=== PATIENT | female | born 1990 | race Caucasian/White ===

== ENCOUNTER → 2023-05-25 10:16 | Outpatient (CLI) | payer OTHER, SELFPAY ==
--- NOTE | 2023-05-25 | DI.US.S_ITS ---
PROCEDURE: US OB >= 14 WEEKS FETUS INDICATIONS: ANATOMY SCAN OUTSIDE/PRIOR DATING DATA: Last menstrual period (LMP): 01/02/2023. LMP-based estimated date of delivery (ALFONSO): 10/09/2023. Working ALFONSO is 10/02/2023 TECHNIQUE: Real-time scanning was performed of the fetus, with image documentation and biometric measurements. COMPARISON: None. FINDINGS: General: A single living intrauterine gestation is present. Presentation: Variable Placenta: Placental position is posterior , without previa. No previa Amniotic fluid index: 17.6 cm, normal range is 5-24 cm. Single deepest vertical pocket is 4.8 cm. heart rate: 141 beats per minute. Maternal cervical canal: 6.2 cm long. Normal lower limit is 2.5 cm. biometrics: Biparietal diameter: 5.2 cm, 21 weeks and 6 days. Head circumference: 19.4 cm, 21 weeks and 4 days Abdominal circumference: 15.6 cm, 20 weeks and 5 days Femur length: 3.6 cm, 21 weeks and 4 days Clinically estimated gestational age: 20 weeks and 3 days Composite gestational age from present scan: 21 weeks and 3 days Estimated weight and percentile: 405 g, 84th percentile Anatomic survey: Neuro: Ventricles are non-dilated at less than 10 mm. Cisterna magna is normal at 3-11 mm. Cerebellum is normal in size and morphology. Nuchal skin fold: Normal at less than 6 mm between 14-21 weeks gestational age. Face: Nose and lips, facial profile are normal. Spine: No evidence for spina bifida. Heart: Four-chamber view is present. RVOT is not well seen. LVOT within normal limits. Diaphragm: Diaphragm is intact. Stomach: Left-sided stomach is present. Kidneys: No hydronephrosis. Normal is less than 5 mm in 2nd trimester, less than 7 mm in 3rd trimester. Cord: 3-vessel cord has orthotopic insertion. Bladder: Normal in size. Extremities: All 4 extremities identified. IMPRESSION: Living intrauterine gestation at 20 weeks and 3 days. Biometry at the upper limit of normal today at the 84th percentile, 405 g. No significant abnormalities on routine anatomic survey. The RVOT however was not well seen due to position. Consider follow-up. Dictated by: Matti Triplett M.D. on 05/25/2023 at 15:16 Approved by: Matti Triplett M.D. on 05/25/2023 at 15:20
== END ==
PROVIDERS: Referring Provider Nurse Practitioner Obstetrics & Gynecology; Visit Provider Nurse Practitioner Obstetrics & Gynecology
DX: Z34.92 Encounter for supervision of normal pregnancy, unspecified, second trimester (principal); Z3A.20 20 weeks gestation of pregnancy
CPT/HCPCS: 76811

== ENCOUNTER → 2023-06-29 10:13 | Outpatient (CLI) | payer OTHER, SELFPAY ==
--- NOTE | 2023-06-29 10:14 | DI.US.S_ITS ---
PROCEDURE: US OB FOLLOW UP INDICATIONS: Size greater than dates OUTSIDE/PRIOR DATING DATA: Last menstrual period (LMP): 12/25/2022. LMP-based estimated date of delivery (ALFONSO): 10/19/2023. First dating scan (date and location): Un no. Estimated date of delivery (ALFONSO) from first dating scan: 10/02/2023. The calculations are made using the ultrasound ALFONSO of 10/02/2023. TECHNIQUE: Real-time scanning was performed of the fetus, with image documentation and biometric measurements. COMPARISON: [facility], US, US OB >= 14 WEEKS FETUS, 05/25/2023, 10:28. FINDINGS: General: A single living intrauterine gestation is present. Presentation: Variable. Placenta: Placental position is posterior , without previa. Amniotic fluid index: 19.4 cm, normal range is 5-24 cm. Single deepest vertical pocket is 5.7 cm. heart rate: 144 beats per minute. Maternal cervical canal: 7.0 cm long. Normal lower limit is 2.5 cm. biometrics: Biparietal diameter: 6.6 cm 26 weeks 3 days Head circumference: 24.2 cm 26 weeks 2 days Abdominal circumference: 21.8 cm 26 weeks 2 days Femur length: 4.9 cm 26 weeks 3 days Estimated gestational age: 25 weeks 3 days Composite gestational age from present scan: 26 weeks 3 days Estimated weight and percentile: 926 g 79th percentile Other: Right ventricular outflow tract is within normal limits. IMPRESSION: Single live intrauterine with gestational age today of 26 weeks 3 days. Right ventricular outflow tract is within normal limits. We strive to produce accurate, complete, and clear reports of imaging services. To assist us in improving patient care, this report was composed using standard report templates and voice recognition software. Therefore, it may contain abnormal punctuation, insertions and/or omissions. Occasional wrong-word or sound-alike substitutions may occur. Though we review the report and make efforts to correct it, we do recommend that the report be read carefully in proper context to recognize any text inaccuracies. Dictated by: Glory Bravo M.D. on 06/29/2023 at 15:43 Approved by: Glory Bravo M.D. on 06/29/2023 at 15:47
== END ==
LOC: US 10:13
PROVIDERS: Referring Provider Advanced Practice Midwife; Visit Provider Advanced Practice Midwife
DX: O26.842 Uterine size-date discrepancy, second trimester (principal); Z3A.26 26 weeks gestation of pregnancy
CPT/HCPCS: 76816

== ENCOUNTER 2023-10-08 08:35 | Outpatient (CLI) | payer OTHER, SELFPAY ==
--- NOTE | 2023-10-08 09:47 | PM.OBTRLD ---
Visit Information Visit Information Date of evaluation: 10/08/23 Primary OB Provider: Brigitte Palomares On-call OB Provider: Brigitte Palomares Reason for Evaluation: Yes rule out labor Comments/Additional reasons for admission: Martha is a 33 yo at 29 weeks 6 day by sure LMP and concordant with 8-week US. Yesterday afternoon, Martha had bloody show and began having regular contractions every 5 minutes. Contractions first increased in intensity and then spaced out after a bath overnight and she chose to stay home and arrive at triage this AM at 0900 for evaluation with her . She is disappointed she is not more dilated. Vital Signs Vital Signs: BP: 116/65 HR: 94 bpm T: 36.2 C [facility] Medical History (Updated 10/08/23 @ 10:11 by Brigitte Palomares CNM, KAYKAY) BMI 30.0-30.9,adult (normal spontaneous vaginal delivery) Twin Surgical History (Updated 10/08/23 @ 10:04 by Brigitte Palomares CNM, KAYKAY) H/O inguinal hernia repair Family History (Updated 10/08/23 @ 10:15 by Brigitte Palomares CNM, KAYKAY) Other Cancer Diabetes mellitus Hypertension Stroke Thyroid disease Social History (Updated 10/08/23 @ 10:13 by Brigitte Palomares CNM, KAYKAY) marital status: number of children: 2 household members: spouse and children lives independently: Yes caregiver/support person: No housing: house education level: college occupational status: employed brodie/quaker: [employer] leisure activities: exercise do you feel safe at home: Yes Smoking Status: Never smoker well-balanced diet: daily or most days caffeine: Yes Type(s) of exercise: aerobic, regular exercise and resistance training frequency: 3-4 times per week Review of Systems Review of Systems ROS: Yes All systems reviewed with the patient and are negative except as otherwise documented Exam Vital Signs (past 8 hours): See above Presentation: vertex Evaluation Evaluation Baseline heart rate: 140 Variability: Moderate (11-25) monitor accelerations: Present Monitor Decelerations: Absent Contraction Frequency (minutes): 0 (Irregular) Category of Tracing: Reactive Cervical dilation (cm): 2 Cervical effacement (%): 75 station: -2 Diagnosis, Plan/Disposition Plan/Disposition Plan: Assessment: 33 yo not in labor Membranes intact GBS negative Plan: Discharge home Encouraged to rest and contact CNM if status changes and contractions become increasingly regular/intense Return to clinic Thursday or next week as desired, or sooner as needed
== END 2023-10-08 09:16 | disposition home or self-care (01) ==
LOC: LABOR 09:09 → OB 10-12 11:18
PROVIDERS: Referring Provider Advanced Practice Midwife; Visit Provider Advanced Practice Midwife
DX: O47.03 False labor before 37 completed weeks of gestation, third trimester (principal); Z3A.29 29 weeks gestation of pregnancy
CPT/HCPCS: 59025; G0378; G0379

== ENCOUNTER 2023-10-09 16:49 | Inpatient (IN) | payer OTHER, SELFPAY ==
--- NOTE | 2023-10-09 17:11 | P.HPOB_ITS ---
OB HPI Date/Time Date of admission: 10/09/23 Date Patient Seen: 10/09/23 Time Patient Seen: 17:12 History of Present Condition Chief complaint: LABOR Narrative: Martha Martinez is a 33 year old female History of Present care: good care, initiated at week #, number of visits and pounds weight gain [facility] Medical History (Updated 10/08/23 @ 10:11 by Brigitte Palomares CNM, KAYKAY) BMI 30.0-30.9,adult (normal spontaneous vaginal delivery) Twin Surgical History (Updated 10/08/23 @ 10:04 by Brigitte Palomares CNM, KAYKAY) H/O inguinal hernia repair Family History (Updated 10/08/23 @ 10:15 by Brigitte Palomares CNM, KAYKAY) Other Cancer Diabetes mellitus Hypertension Stroke Thyroid disease Social History (Updated 10/08/23 @ 10:13 by Brigitte Palomares CNM, KAYKAY) marital status: number of children: 2 household members: spouse and children lives independently: Yes caregiver/support person: No housing: house education level: college occupational status: employed brodie/religious: [employer] leisure activities: exercise do you feel safe at home: Yes Smoking Status: Never smoker well-balanced diet: daily or most days caffeine: Yes Type(s) of exercise: aerobic, regular exercise and resistance training frequency: 3-4 times per week
--- NOTE | 2023-10-09 17:31 | PM.OBHP.1 ---
OB HPI Date/Time Date of admission: 10/09/23 Date Patient Seen: 10/09/23 Time Patient Seen: 05:10 History of Present Condition Chief complaint: LABOR : 2 Para: 1 Estimated Date of Delivery: 10/09/23 Estimated Gestational Age (weeks): 40 Narrative: Martha Martinez is a 33 year old female by LMP concordant with 8 week US. Martha had uncomplicated care with CNVt. Since her triage visit yesterday, Martha continued to have strong but irregular contractions began feeling strong, regular contractions. This afternoon, after completing the [employer] circuit, she contacted CNM at 1600 to notify that contractions had intensified and she wanted to come in. She arrived at the hospital at 1645 with her Bo, tearful and working hard to get through contractions. History of Present care: good care, initiated at week # (8), number of visits (9) and pounds weight gain (65 ) Dating criteria: LMP confirmed by 1st trimester US Ultrasounds: normal 1st trimester US and normal mid trimester US Obstetrical complications: none Medical complications: none Preadmission Labs Blood type: AB (+) positive -: Antibody screen: negative, Cystic fibrosis screen: unknown (Declined testing), GBS status: negative, HBsAG: negative, HIV: negative, HSV 1: negative, HSV 2: negative and RPR/VDLR: negative -: Chlamydia screen: not detected and Gonorrhea screen: not detected -: Rubella: immune and Varicella: not immune HCT: 36.6 HCAB: negative PAP: Abnormal (ASCUS) Sequential screen: Declined MsAFP Cell-free DNA: Declined 1 hr GTT: 69 Prior (ies) History: with h/o NSVB of twins in 2019 Evaluation Evaluation Baseline heart rate: 140 Variability: Moderate (11-25) monitor accelerations: Absent Monitor Decelerations: Late Contraction Frequency (minutes): 4 Uterine Contraction Intensity: Strong/Firm Status: Category ll Dilation (cm): 7 Effacement (%): 80 Dilation: >/=5 cm Effacement: >/=80% station: -1 Position of cervix: anterior Consistency: soft Monique score: 12 [facility] Medical History (Updated 10/08/23 @ 10:11 by Brigitte Palomares, ISRRAEL, SWINE NUTRITIONIST) BMI 30.0-30.9,adult (normal spontaneous vaginal delivery) Twin Surgical History (Updated 10/08/23 @ 10:04 by Brigitte Palomares CNM, ARNP) H/O inguinal hernia repair Family History (Updated 10/08/23 @ 10:15 by Brigitte Palomares CNM, ARNP) Other Cancer Diabetes mellitus Hypertension Stroke Thyroid disease Social History (Updated 10/08/23 @ 10:13 by Brigitte Palomares CNM, ARNP) marital status: number of children: 2 household members: spouse and children lives independently: Yes caregiver/support person: No housing: house education level: college occupational status: employed brodie/taoist: [employer] leisure activities: exercise do you feel safe at home: Yes Smoking Status: Never smoker well-balanced diet: daily or most days caffeine: Yes Type(s) of exercise: aerobic, regular exercise and resistance training frequency: 3-4 times per week Meds Home Medications and Allergies Allergies Allergy/AdvReac Type Severity Reaction Status Date / Time amoxicillin Allergy Intermediate Rash Verified 10/09/23 17:22 Review of Systems Review of Systems ROS: Yes All systems reviewed with the patient and are negative except as otherwise documented OB Exam Vital signs Blood Pressure: 113/63 Pulse Rate: 95 Temperature: 97.5 F HENMT Head: normal to inspection and normocephalic Eyes General: appearance normal, both eyes and all related structures Resp Effort & Inspection: normal respiratory effort and able to speak in complete sentences Extremities Lower extremity: Yes normal to inspection GI Inspection: other (term gravid uterus) Presentation: vertex Objective Labs 10/09/23 17:45 Assessment and Plan Assessment and Plan Assessment and Plan narrative: Assessment: multip in active labor Hypothyroidism in Membranes intact GBS negative Rhogam not indicated Cat 2 FHR Plan: Admit to unit for labor management Plan for intermittent monitoring unless FHR category 2 CE performed per patient request Pt plans unmedicated Anticipate NSVB
[2023-10-09 18:05] LABS: Add Manual Diff / Slide Review NO; Basophils Absolute Auto 100 /uL (0-100); Basophils Percent Auto 0.6 % (0-2); Eosinophils Absolute Auto 100 /uL (0-450); Eosinophils Percent Auto 0.4 % (2-4); Hematocrit 37.4 % (36-46); Hemoglobin 12.6 g/dL (12.0-16.0); Lymphocytes Absolute Auto 1100 /uL (1100-4500); Lymphocytes Percent Auto 8.5 % (25-40); Mean Corpuscular HGB Conc 33.6 % (30-36); Mean Corpuscular Hemoglobin 30.1 PG (26-34); Mean Corpuscular Volume 89.6 fL (80-100); Monocytes Absolute Auto 700 /uL (0-900); Monocytes Percent Auto 5.4 % (3-14); Neutrophils Absolute Auto 10700 /uL (1500-7000); Neutrophils Percent Auto 85.1 % (50-75); Platelet Count 260 X10^3/uL (150-400); Red Blood Cell Count 4.17 X10^6/uL (4.0-5.2); Red Cell Distribution Width 14.4 % (11.6-14.8); White Blood Cell Count 12.6 X10^3/uL (4.5-11.0)
[2023-10-09] MEDS: OXYTOCIN 10 UNIT/ML VIAL IM (18:08)
[2023-10-09 18:36] VITALS: BP 111/60
--- NOTE | 2023-10-09 19:19 | PM.OBPRVD ---
Labor & Delivery Delivery date: 10/09/23 Intrapartal Events: Precipitous Labor < 3 hours Cervical ripening method: none Induction method: none Delivery monitor: external FHT Route of delivery: L&D Laceration Description: Periurethral - 2nd Degree Delivery repair: vicryl Quantitative Blood Loss: 308 Anesthesia Type: None Narrative: Labor progressed quickly once Martha was admitted. HR was Category 2 throughout 2nd stage. While standing, she had 2 or 3 strong and intense contractions, and pushed once to deliver baby's head direct OA. With next contraction, shoulders easily delivered and double nuchal cord noted. Baby somersaulted and cord reduced after body delivered at 1800 and then baby passed through Martha's legs to her awaiting arms. Apgars 9/9. They remained skin to skin while cord was cut and placenta was delivered. Placenta delivered spontaneously with maternal efforts and appeared to be intact. 3 vessel cord clamped and cut by NORIS Soriano at 10 minutes of life after cord pulsing had stopped. Cord blood collected for blood typing. Perineum inspected and found to be intact. Shallow periurethral laceration on L and deeper periurethral laceration on R; R side repaired with 3-0 vicryl with single figure 8. 10 mU IM pitocin given in R shoulder for PPH prevention. Blood loss measured and estimated loss is 308 mL. Mom and baby left stable and is being initiated. Martha and Bo are thrilled to meet their baby boySean. Brigitte MCCRACKEN, CNM, IBCLC [place] Baby 1: gender: Male Presentation: vertex Position: Left Occiput Anterior Placenta delivery description: Spontaneous Cord Vessel Description: 3 Vessels score (1 min): 9 score (5 min): 9 weight: 4.003 kg Plan for aftercare: Routine care
[2023-10-09 20:24] VITALS: BP 113/63; PULSE 95; TEMP 36.4
[2023-10-10] MEDS: LANOLIN OINT 7 GM 1 APPLIC TOP (06:39)
[2023-10-10] MEDS: DERMOPLAST SPRAY 20% 60 ML 1 SPRAY TOP (06:39)
[2023-10-10] MEDS: IBUPROFEN 600 MG TABLET PO (08:26)
--- NOTE | 2023-10-10 11:30 | P.DS_ITS ---
Discharge Providers Provider Date of admission: 10/09/23 16:49 Discharge Date: 10/10/23 Primary care physician: ISRRAEL Christiansen Provider Consults: 10/09/23 17:05 Consult to Anesthesiology Urgent Comment: Consulting Provider: Anesthesiologist Reason for consultation: Epidural Has provider been notified: No 10/10/23 18:24 Consult to Equipment Monitor Phototypesetting Routine Comment: Discharge provider: Brigitte Palomares CNM, ARNP Summary Hospital Course Date Patient Seen: 10/10/23 Diagnoses: O80 Hospital Course: Martha arrived in active labor, proceeded to have [place] NSVB with normal bleeding. . Normal care. Peripartum Data Infant Delivery Method: Natural Vaginal Laceration Description: Periurethral - 2nd Degree Episiotomy description: None Procedures: Sutured perineal laceration complications: none [place] 1: Gender: Male Disposition of : home Discharge Diagnosis (1) Encounter for full-term uncomplicated delivery: Status: Acute (2) BMI 30.0-30.9,adult: Status: Acute (3) Supervision of normal in third trimester: Status: Acute (4) Hypothyroidism affecting in third trimester: Status: Acute (5) Periurethral laceration, delivered, current hospitalization: Status: Acute (6) Breast feeding status of mother: Status: Acute Status at Discharge Cognitive/behavioral status at discharge: oriented and calm Functional status at discharge: independent ambulation Overall status at discharge: patient is progressing back to baseline Time Spent with Patient Time attestation: Total time spent providing and/or coordinating discharge services: Time spent: Less than 30 minutes Specific discharge activities: discharge teaching Objective Labs 10/09/23 17:45 Labs: Laboratory Results - last 24 hr 10/09/23 17:45 WBC 12.6 H RBC 4.17 Hgb 12.6 Hct 37.4 MCV 89.6 MCH 30.1 MCHC 33.6 RDW 14.4 Plt Count 260 Neut % (Auto) 85.1 H Lymph % (Auto) 8.5 L Divide % (Auto) 5.4 Eos % (Auto) 0.4 L Baso % (Auto) 0.6 Neut # (Auto) 34892 H Lymph # (Auto) 1100 Divide # (Auto) 700 Eos # (Auto) 100 Baso # (Auto) 100 Blood Type AB Positive Antibody Screen Negative Exam Vital Signs (past 8 hours): BP 106/74 HR 100 RR 16/min Temp 97.8 F SpO2 99% Other: Fundus firm at U, midline. Lochia scant Perineum intact with minimal edema Discharge Plan Discharge Plan Patient Disposition: Home Discharge orders & Medications Medication counseling provided by Pharmacist: No Follow up/Referrals: Brigitte Palomares, ISRRAEL, KAYKAY [Advanced Gut Snatcher] - 2 Weeks (2 weeks and 6 weeks as scheduled; patient has information via e-mail.) Provider,Danielle CARROIN [Primary Care Provider] - Diet/Activity/Treatments Diet: Diet as Tolerated and Regular Diet comment: normal with emphasis on fiber and hydration to support healing and stooling Activity: low argueta for 2 weeks Cold/Heat Therapy: as needed Skin/Wound/Dressing Care Skin care: usual care Report to your healthcare provider any signs of infection, such as:: chills, fever, increased pain, unusual drainage and unusual redness Visit Report/Discharge Packet Stand Alone Forms: Discharge: Care, Patient Portal/API, Stroke Signs & Symptoms Discharge Data Primary Care Provider: Danielle Marti
[2023-10-10 12:47] VITALS: BP 110/72; PULSE 98; RESP 15; TEMP 36.7
== END 2023-10-10 14:30 | disposition home or self-care (01) | DRG 807 ==
PROVIDERS: Admitting Provider Advanced Practice Midwife; Referring Provider Advanced Practice Midwife; Visit Provider Advanced Practice Midwife
DX: O62.3 Precipitate labor (principal); Z37.0 Single live birth; O70.0 First degree perineal laceration during delivery; Z3A.40 40 weeks gestation of pregnancy
CPT/HCPCS: 59050; 85025; 86850; 86900; 86901; G0378; G0379; J2590